=== PATIENT | male | born 1995 | race Caucasian/White ===

== ENCOUNTER 2022-12-26 09:13 | Inpatient (IN) | payer OTHER, SELFPAY ==
[2022-12-26] VITALS (7 sets, daily range): BP systolic 119–150; BP diastolic 67–90; PULSE 87–112; RESP 14–20; TEMP 36.5–37.9; O2SAT 97–100; BMI 20.4
--- NOTE | ~2022-12-26 | CT_ITS ---
EXAMINATION: CT ABDOMEN AND PELVIS WITH CONTRAST CLINICAL INFORMATION: Right lower quadrant abdominal pain concern for PE. COMPARISON: None available. TECHNIQUE: Multidetector volumetric images were obtained from the superior aspect of the liver through the pubic symphysis following administration 85 mL of Omnipaque 350 intravenous contrast. Sagittal and coronal reformatted images were obtained on the technologist's workstation. Oral contrast: No This CT examination was performed using dose optimization techniques as appropriate, variously including the following: *Automated exposure control *Adjustment of mA and/or kV according to patient size (this includes techniques or standardized protocols for targeted exams where dose is matched to indication/reason for exam; i.e. extremities or head) *Use of iterative reconstruction technique DLP: 416 mGy-cm FINDINGS: LUNG BASES: The visualized lung bases are unremarkable. LIVER, GALLBLADDER, AND BILIARY TREE: The liver is normal in size, shape, and attenuation. No focal hepatic lesion or biliary ductal dilatation is present. The gallbladder is unremarkable with no evidence of radiopaque gallstones, gallbladder wall thickening, or obvious pericholecystic inflammatory changes. PANCREAS: Unremarkable. SPLEEN: Unremarkable. ADRENAL GLANDS: Unremarkable. KIDNEYS AND URETERS: The kidneys are normal in size, shape, and attenuation. No hydronephrosis, hydroureter, or calculi seen. No perinephric stranding. BLADDER: Unremarkable. GASTROINTESTINAL TRACT: There is diffuse inflammatory process in the right lower quadrant with mild technique of the cecum. The terminal ileum appears to be normal caliber. The majority of appendix visualized is normal in caliber measuring 7 mm. The base of the appendix is slightly thickened measuring 9 mm. There is a small diverticulum posterior to the cecum which is inflamed and has thick wall. Best visualized on axial image 57/3. This is suspicious for diverticulitis.. The small bowel loops are unremarkable. There is fluid-filled nondilated ascending colon ABDOMINAL WALL: No significant hernia is appreciated. LYMPH NODES: Normal. VASCULAR: Unremarkable. PELVIC VISCERA: There is a small amount of free fluid in the pelvis.. OSSEOUS STRUCTURES: Unremarkable. CT/CT abdomen pelvis w IV con IMPRESSION: Diffuse inflammatory process in the right lower quadrant with mild thickening of the base of the appendix. The majority of the appendix visualized is normal in caliber. There is a small diverticulum posterior to the cecum which is inflamed and has thick wall. The above findings could represent a combination of appendicitis, diverticulitis or combination. There is reactionary cecal wall thickening as well with air-fluid collection in the proximal ascending colon Results were immediately called to referring digester hand in ED [facility] by phone at 1140 AM. Fleischner guidelines were followed.
--- NOTE | 2022-12-26 09:32 | ED.GENADULT ---
HPI - General Adult General Chief complaint: Abdominal Pain Stated complaint: R Side Pain Sent by Urgent Care Time Seen by Provider: 12/26/22 09:32 Source: patient Mode of arrival: ambulatory Limitations: no limitations History of Present Illness HPI narrative: 27 year old male presents with right lower quadrant pain and nausea x2.5 days. Patient describes his pain as constant and nonradiating. It hasn't worsened nor improved over the last two days. He endorses anorexia with his last meal being approximately 36 hours ago. He tolerates fluids without issue. Denies fever, testicular pain and diarrhea but endorses constipation with infrequent and irregular bowel movements. Patient is unable to remember when his last bowel movement was. Patient trialled Tums for his nausea and abdominal discomfort without relief. Onset (ago): day(s) Location: abdomen and right Radiation: non-radiation Severity: moderate Severity scale (1-10): 5 Quality: aching and constant Pain Consistency: constant Relieving factors: none Exacerbating factors: other (palpation) Associated symptoms: nausea/vomiting Treatments prior to arrival: none Related Data Home Medications Medication Instructions Recorded Confirmed No Known Home Meds 12/26/22 12/26/22 Allergies Allergy/AdvReac Type Severity Reaction Status Date / Time No Known Allergies Allergy Verified 12/26/22 09:28 Review of Systems Constitutional: Constitutional: Reports anorexia, Denies excessive sweating and Denies fever(s) Eyes: Eyes: Reports no additional eye complaints, Denies blurry vision, Denies change in vision, Denies diplopia, Denies eye discharge, Denies loss of vision and Denies eye pain ENT: Denies dizziness Cardiovascular: Cardiovascular: Reports no additional cardiovascular complaints, Denies chest pain, Denies lightheadedness, Denies Loss of Consciousness and Denies dyspnea Respiratory: Respiratory: Reports no additional respiratory complaints and Denies dyspnea Gastrointestinal: Gastrointestinal: Reports abdominal pain, Denies change in bowel habits, Reports constipation, Denies diarrhea, Reports nausea and Denies vomiting Genitourinary: Genitourinary: Denies oliguria, Denies difficulty urinating, Denies flank pain and Denies testicular pain Musculoskeletal: Musculoskeletal: Reports no additional musculoskeletal complaints, Denies numbness and Denies tingling Neurologic: Denies dizziness, Denies loss of vision, Denies numbness and Denies tingling Psychiatric: Psychiatric: Reports no additional psychiatric complaints Endocrine: Endocrine: Denies excessive sweating Hematologic/Lymphatic: Hematologic/Lymphatic: Reports no additional hematologic/lymphatic complaints Allergic/Immunologic: Allergic/Immunologic: Reports no additional allergic/immunologic complaints PMFSH Past Medical History Attestation statement: The following information was validated with the patient. (patient's parents validated all information) Source: old records reviewed, obtained from family (patient's parents provided additional history and confirmed the history provided by the patient.) and nursing notes reviewed Medical History No known health problems Social History Social History Smoked in Last 30 Days: Yes Use of substances other than those prescribed or required for medical reasons: Yes Substance Use Type: Marijuana Substance Use Frequency: Daily Advance Directives: No Advance Directives Information Provided: No Physical Exam ED Vital Signs: Vital Signs - 24 hr 12/26/22 09:28 12/26/22 10:24 12/26/22 12:15 Temperature 99.5 F 98.9 F Pulse Rate 112 H 91 94 Respiratory Rate 18 16 14 Blood Pressure 150/90 H 135/88 146/78 H Pulse Oximetry 97 100 98 Oxygen Delivery Method Room Air Room Air Room Air BMI result Body Mass Index 20.4 Const General: cooperative, no acute distress, alert and awake Nutritional Appearance: well nourished Orientation/consciousness: patient oriented x3 Limitations: no limitations [facility] Head: Yes normal to inspection and Yes atraumatic Ears: hearing grossly normal bilaterally and external ears normal General nose exam: Normal external nose present, no nasal discharge noted and no epistaxis Face and sinus: Yes normal facial exam, No abrasion and No laceration Mouth: Normal oral and palatal mucosa present, no drooling and no muffled voice Eyes General: appearance normal, both eyes and all related structures Periorbital: periorbital findings normal Eyelids: Yes eyelids normal Conjunctivae: conjunctivae normal Pupils: Equal, round and reactive pupils present EOM: EOMs intact bilaterally Neck Neck: Yes normal visual inspection, Yes full ROM and Yes no lymphadenopathy Chest Chest palpation & inspection: normal inspection of the chest Resp Effort & Inspection: normal respiratory effort and able to speak in complete sentences GI Other: tenderness is localized to the lower right quadrant/groin without radiation, negative mcburneys, negative rovsings Inspection: Yes normal to inspection, No distended and No visible herniation Palpation (GI): Soft to palpation, not firm, Tenderness to palpation present (GI) in the RLQ, Guarding due to palpation present (GI), no masses and No Rebound tenderness present Neuro General: patient oriented x3 and moves all extremities Cranial nerves: Yes Equal, round and reactive pupils present Cognition (Neuro): normal cognition Motor exam (neuro): 5/5 motor strength present throughout Sensory Exam: Normal double simultaneous stimulation for sensation Coordination: [id number] test normal Extrem General: Yes normal to inspection, Yes full ROM and Yes capillary refill normal Psych Appearance: grossly normal Mental Status: mental status grossly normal Affect: normal affect Attitude: cooperative Thought process: Normal thought process present Thought content: Normal thought content present Insight: Good insight present (Psych) Medications Administered Discontinued Medications Generic Name Dose Route Start Last Admin Trade Name Freq PRN Reason Stop Dose Admin Iohexol 100 ml 12/26/22 10:37 12/26/22 10:38 Iohexol 350 Mg/Ml 100 Ml Infus..Btl IV 12/26/22 10:38 85 ml ONCE ONE Administration Ondansetron HCl 4 mg 12/26/22 09:43 12/26/22 10:21 Ondansetron Hcl 4 Mg/2 Ml Vial IVPUSH 12/26/22 09:44 4 mg ONCE ONE Administration Medical Decision Making Medical Decision Making [facility] Narrative: Patient is a 27 year old assigned male at with no reported medical history presenting to the emergency department today with right lower quadrant abdominal pain. Patient's physical exam was as noted in the physical exam portion of this note. Patient's blood work showed an elevated WBC count of 16.8 and a decreased potassium of 3.1 but the remainder of the patient's labs were unremarkable. Patient's urine showed trace blood and trace leukocyte esterase however, there are squamous cells present and the patient has no urinary complaints, will await culture before starting treatment. Patient's abdominal / pelvis CT showed diffuse inflammatory process in the RLQ with mild thickening at the base of the appendix and a small diverticulum posterior to the cecum with evidence of inflammation. Radiologist states that this could be appendicitis vs. diverticulitis or a combination of both. I spoke with the general surgeon who agreed to admission. I explained my physical exam findings as well as all test results to the patient and the patient's parents. I answered all questions asked by the patient and the patient's parents. Patient and the patient's parents verbalized agreement and understanding with this treatment plan and admission. Differential Diagnosis Differential Diagnoses: The differential diagnosis associated with the presentation includes Appendicitis Diverticulitis Abdominal pain Viral illness Admission/Observation Consideration of admission/observation: Escalation of care including admission/observation considered Patient to be admitted to the surgical service. Consult Healthcare Provider Management of the patient was discussed with: Cable Mechanic (spoke with the surgeon as noted in the MDM rationale portion of this note.) Lab Data [facility] Lab Attestation statement: I reviewed the patient's lab results. My interpretation of these results are in the MDM Rationale portion of this note. 12/26/22 09:50 12/26/22 09:50 Labs: Lab Results 12/26/22 12/26/22 Range/Units 09:50 10:28 WBC 16.8 H (4.8-10.8) X10*3/uL RBC 5.48 (4.60-5.80) X10*6/uL Hgb 16.4 (14.0-18.0) g/dl Hct 48.4 (42.0-52.0) % MCV 88.3 (80.0-98.0) fL MCH 29.9 (27.0-33.0) pg MCHC 33.9 (31.0-36.0) g/dl RDW 12.0 (11.0-16.0) % Plt Count 262 (160-400) X10*3/uL MPV 9.2 L (9.4-12.4) fL Immature Gran % (Auto) 0.4 (0.0-0.4) % Neut % (Auto) 81.6 H (45-73) % Lymph % (Auto) 7.2 L (20-40) % [place] % (Auto) 10.4 (2-11) % Eos % (Auto) 0.2 (0-4) % Baso % (Auto) 0.2 (0-2) % Lymph # (Auto) 1.2 (1.2-4.9) X10*3/uL [place] # (Auto) 1.8 H (0.1-1.2) X10*3/uL Eos # (Auto) 0.0 (0.0-0.4) X10*3/uL Baso # (Auto) 0.0 (0.0-0.2) X10*3/uL Abs Immat Gran (auto) 0.06 H (0.00-0.03) X10*3/uL Absolute Neuts (auto) 13.7 H (2.0-8.3) x10*3/uL Absolute Nucleated RBC 0.000 (0.0-0.012) X10*3/uL Nucleated RBC % (auto) 0.0 (0.0-0.2) /100WBC Smear Tech's Comments VERIFIED PT 14.1 H (11.1-13.3) SEC INR 1.2 H (0.9-1.1) APTT 32.2 (26.0-36.4) SEC Sodium 138 (135-145) mmol/L Potassium 3.1 L (3.3-5.1) mmol/L Chloride 98 (96-108) mmol/L Carbon Dioxide 27 (22-29) mmol/L Anion Gap 16 (12-20) BUN 6 L (9-16) mg/dL Creatinine 0.93 (0.5-1.4) mg/dL Estim Creat Clear Calc 113.0 Estimated GFR > 60 Random Glucose 98 (60-115) mg/dL Lactic Acid 0.8 (0.5-2.0) mmol/L Calcium 10.9 H (8.4-10.2) mg/dL Magnesium 1.8 (1.6-2.6) mg/dL Total Bilirubin 1.5 H (0.0-1.0) mg/dL AST 12 (5-37) U/L ALT 9 (0-40) U/L Alkaline Phosphatase 102 (39-117) U/L Total Protein 8.6 H (6.5-8.0) g/dL Albumin 4.9 (3.5-5.0) g/dL Urine Color Dark Yellow Urine Appearance Clear Urine pH 6.5 (5.0-9.0) Ur Specific [place] >= 1.030 H (1.005-1.025) Urine Protein 30 (1+) H (Neg-Trace) mg/dL Urine Glucose (UA) Negative (Negative) mg/dL Urine Ketones 15 (Negative) mg/dL Urine Blood Small (1+) H (Negative) Urine Nitrite Negative (Negative) Ur Leukocyte Esterase Trace H (Negative) Urine RBC 6-10 H (0-2) /HPF Urine WBC 6-10 H (0-5) /HPF Ur Squamous Epith Cells 0-2 (0-2) /HPF Urine Bacteria None Seen (None Seen) Hyaline Casts 0-2 (0-2) /LPF Influenza Type A (PCR) NEGATIVE (Negative) Influenza Type B (PCR) NEGATIVE (Negative) RSV RNA Qual (PCR) NEGATIVE (Negative) SARS-CoV-2 RNA (RT-PCR) NEGATIVE (Negative) Independent Interpretation I performed an independent interpretation of an: CT Scan Interpretation: My interpretation is in agreement with the radiologist's impression of this imaging study. EXAMINATION: CT ABDOMEN AND PELVIS WITH CONTRAST CLINICAL INFORMATION: Right lower quadrant abdominal pain concern for PE. COMPARISON: None available. TECHNIQUE: Multidetector volumetric images were obtained from the superior aspect of the liver through the pubic symphysis following administration 85 mL of Omnipaque 350 intravenous contrast. Sagittal and coronal reformatted images were obtained on the technologist's workstation. Oral contrast: No This CT examination was performed using dose optimization techniques as appropriate, variously including the following: *Automated exposure control *Adjustment of mA and/or kV according to patient size (this includes techniques or standardized protocols for targeted exams where dose is matched to indication/reason for exam; i.e. extremities or head) *Use of iterative reconstruction technique DLP: 416 mGy-cm FINDINGS: LUNG BASES: The visualized lung bases are unremarkable. LIVER, GALLBLADDER, AND BILIARY TREE: The liver is normal in size, shape, and attenuation. No focal hepatic lesion or biliary ductal dilatation is present. The gallbladder is unremarkable with no evidence of radiopaque gallstones, gallbladder wall thickening, or obvious pericholecystic inflammatory changes. PANCREAS: Unremarkable. SPLEEN: Unremarkable. ADRENAL GLANDS: Unremarkable. KIDNEYS AND URETERS: The kidneys are normal in size, shape, and attenuation. No hydronephrosis, hydroureter, or calculi seen. No perinephric stranding. BLADDER: Unremarkable. GASTROINTESTINAL TRACT: There is diffuse inflammatory process in the right lower quadrant with mild technique of the cecum. The terminal ileum appears to be normal caliber. The majority of appendix visualized is normal in caliber measuring 7 mm. The base of the appendix is slightly thickened measuring 9 mm. There is a small diverticulum posterior to the cecum which is inflamed and has thick wall. Best visualized on axial image 57/3. This is suspicious for diverticulitis.. The small bowel loops are unremarkable. There is fluid-filled nondilated ascending colon ABDOMINAL WALL: No significant hernia is appreciated. LYMPH NODES: Normal. VASCULAR: Unremarkable. PELVIC VISCERA: There is a small amount of free fluid in the pelvis.. OSSEOUS STRUCTURES: Unremarkable. CT/CT abdomen pelvis w IV con IMPRESSION: Diffuse inflammatory process in the right lower quadrant with mild thickening of the base of the appendix. The majority of the appendix visualized is normal in caliber. There is a small diverticulum posterior to the cecum which is inflamed and has thick wall. The above findings could represent a combination of appendicitis, diverticulitis or combination. There is reactionary cecal wall thickening as well with air-fluid collection in the proximal ascending colon Results were immediately called to referring pot room tapper in ED [facility] by phone at 1140 AM. Fleischner guidelines were followed. Dictated By: Evan Mills MD Signed By: Electronically signed by Evan Mills MD 12/26/22 1142 Radiology Impression Discussion of test interpretation with radiology: I have reviewed the radiologist's reading. Independent Historian Clinical information obtained from an independent historian. History obtained from or confirmed by: Parent (patient's parents provided additional history and confirmed the history provided by the patient.) Critical Care Time Critical Care Time Critical Care Time: Yes Total Critical Care Time: 45 Attestation: I spent 45 minutes of Critical Care Time with this patient. This does not include time spent on separately reported billable procedures. Discharge Plan Discharge Clinical Impression: Abdominal pain Patient Disposition: Admitted As Inpatient Prescriptions: No Action No Known Home Meds
[2022-12-26 10:00] LABS: Basophils Percent Auto 0.2 % (0-2); Eosinophils Percent Auto 0.2 % (0-4); Hematocrit 48.4 % (42.0-52.0); Hemoglobin 16.4 g/dl (14.0-18.0); Imm Gran Abs Auto 0.06 X10*3/uL (0.00-0.03); Imm Gran Pct Auto 0.4 % (0.0-0.4); Lymphocytes Absolute Auto 1.2 X10*3/uL (1.2-4.9); Lymphocytes Percent Auto 7.2 % (20-40); MANUAL DIFF FLAG SCAN; Mean Corpuscular HGB Conc 33.9 g/dl (31.0-36.0); Mean Corpuscular Hemoglobin 29.9 pg (27.0-33.0); Mean Corpuscular Volume 88.3 fL (80.0-98.0); Mean Platelet Volume 9.2 fL (9.4-12.4); Monocytes Absolute Auto 1.8 X10*3/uL (0.1-1.2); Monocytes Percent Auto 10.4 % (2-11); Neutrophils Absolute Auto 13.7 x10*3/uL (2.0-8.3); Neutrophils Percent Auto 81.6 % (45-73); Platelet Count 262 X10*3/uL (160-400); Red Blood Count 5.48 X10*6/uL (4.60-5.80); SCAN SMEAR FLAG 1; White Blood Count 16.8 X10*3/uL (4.8-10.8)
[2022-12-26 10:08] LABS: INTERNATIONAL NORM RATIO 1.2 (0.9-1.1); Prothrombin Time 14.1 SEC (11.1-13.3)
[2022-12-26 10:10] LABS: Lactic Acid 0.8 mmol/L (0.5-2.0)
[2022-12-26 10:11] LABS: Partial Thromboplastin Time 32.2 SEC (26.0-36.4)
[2022-12-26 10:13] LABS: Alanine Aminotransferase 9 U/L (0-40); Albumin Level 4.9 g/dL (3.5-5.0); Alkaline Phosphatase 102 U/L (39-117); Anion Gap 16 (12-20); Aspartate Amino Transferase 12 U/L (5-37); Bilirubin Total 1.5 mg/dL (0.0-1.0); Blood Urea Nitrogen 6 mg/dL (9-16); Calcium 10.9 mg/dL (8.4-10.2); Carbon Dioxide 27 mmol/L (22-29); Chloride 98 mmol/L (96-108); Estimated Glomerular Filt Rate > 60; Glucose Random 98 mg/dL (60-115); Magnesium 1.8 mg/dL (1.6-2.6); Potassium 3.1 mmol/L (3.3-5.1); Sodium 138 mmol/L (135-145); Total Protein 8.6 g/dL (6.5-8.0)
[2022-12-26 10:19] LABS: SLIDE REVIEW VERIFIED
[2022-12-26] MEDS: ondansetron HCL 4 MG/2 ML VIAL IVPUSH (10:21)
--- NOTE | 2022-12-26 10:28 | PC.NURSE ---
pt a&ox4, vss, reporting 5/10 RLQ/inguinal abd pain w associated nausea. labs drawn, urine sample obtained, 20G IV placed left AC, medicated per MAR, pt to CT. no new orders at this time.
[2022-12-26 10:38] LABS: Appearance Urine Clear; Color Urine Dark Yellow; Glucose Urine UA Negative (Negative); Leukocyte Esterase Urine Trace (Negative); Nitrite Urine Negative (Negative); PH 6.5 (5.0-9.0); Specific Gravity - Urine >= 1.030 (1.005-1.025); UMIC TRIGGER UACC YES; Urine Blood Small (1+) (Negative); Urine Ketones 15 mg/dL (Negative); Urine Protein 30 (1+) mg/dL (Neg-Trace)
[2022-12-26] MEDS: iohexoL 350 MG/ML 100 ML INFUS..BTL IV (10:38)
[2022-12-26 10:40] LABS: Influenza A PCR NEGATIVE (Negative); Influenza B PCR NEGATIVE (Negative); Resp Syncy Virus RNA Qual PCR NEGATIVE (Negative); SARS COV2 PCR INHOUSE NEGATIVE (Negative)
[2022-12-26 10:41] LABS: Bacteria Urine None Seen (None Seen); Hyaline Casts Urine 0-2 /LPF (0-2); Squamous Epithelial Cell Urine 0-2 /HPF (0-2); UACC Culture Trigger YES
--- NOTE | 2022-12-26 12:58 | PM.HPGS ---
History of Present Illness History of Present Illness Date of Service: 12/26/22 Chief complaint: R Side Pain Sent by Urgent Care Narrative: Noe Frank is a 27 year old male who is seen at the request of the emergency staff due to abdominal pain and obstipation. The patient is accompanied by both his mother and father or at the bedside. He has given permission to discuss his health in front of them. Patient notes that over the past few days he has been experiencing obstipation. He has no history of GI symptoms such as rectal bleeding, watery diarrhea and has not been out of the country. He is on medical marijuana for weight gain an appetite since he is always been in the 5th percentile regarding his body weight. 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 He denies any unusual meal or accidentally swallowing any items such as toothpicks or dental appliances. Patient denies any fevers or chills and there has been no recent trauma. According to both parents the patient, there is no family history of GI malignancy, inflammatory bowel disease, unusual presentations for intra-abdominal pathology with the patient's sister or anyone that they recall. The patient's mother has a history of breast cancer, postmenopausal and there are no patient is on either side of the family who have had colorectal cancer under age of 50. Patient's father's family does report colorectal cancer at an earlier age. Review of Systems Review of Systems: Yes all other systems are reviewed and are negative Constitutional: Constitutional: Reports as per [facility] Past Medical History Medical History No known health problems Functional capacity: independent ambulation Social History Social History Smoked in Last 30 Days: Yes Use of substances other than those prescribed or required for medical reasons: Yes Substance Use Type: Marijuana Substance Use Frequency: Daily Advance Directives: No Advance Directives Information Provided: No Meds Allergies Allergy/AdvReac Type Severity Reaction Status Date / Time No Known Allergies Allergy Verified 12/26/22 09:28 Home Medications Medication Instructions Recorded Confirmed Last Taken Type No Known Home Meds 12/26/22 12/26/22 Unknown History Physical Exam Vital Signs: Vital Signs: Last Vital Signs Temp 98.9 F 12/26/22 10:24 Pulse 94 12/26/22 12:15 Resp 14 12/26/22 12:15 BP 146/78 H 12/26/22 12:15 Pulse Ox 98 12/26/22 12:15 O2 Del Method Room Air 12/26/22 12:15 BMI result Body Mass Index 20.4 The patient is non-toxic & in good spirits NC/AT, PERRLA, EOMI Mood, affect & judgment all appear appropriate Sclera anicteric conjunctiva pink and moist Oropharynx is clear with no aphthous ulcers, Mallampati class 4, mucous membranes moist Neck is supple with no masses, adenopathy or bruits Thyroid is nontender and free of dominant masses Heart is regular, normal S1-S2 no rubs or murmurs Lungs are clear and equal anteriorly with no audible wheezing, rubs or dullness to percussion No CVA tenderness present Abdomen is leanwith no demonstrable hernias. There is no peritoneal irritation to percussion in the right lower quadrant and the patient's abdomen is otherwise soft with some scattered tympany. No HSM, rebound, rigidity, guarding, masses or bruits are present. Rectal exam is deferred Skin has good turgor and is free of rashes Extremities free of cyanosis clubbing edema Results Results Labs: Short CBC 12/26/22 Range/Units 09:50 WBC 16.8 H (4.8-10.8) X10*3/uL Hgb 16.4 (14.0-18.0) g/dl Hct 48.4 (42.0-52.0) % Plt Count 262 (160-400) X10*3/uL BMP 12/26/22 09:50 Sodium 138 Potassium 3.1 L Chloride 98 Carbon Dioxide 27 BUN 6 L Creatinine 0.93 Calcium 10.9 H Liver Function 12/26/22 Range/Units 09:50 Total Bilirubin 1.5 H (0.0-1.0) mg/dL AST 12 (5-37) U/L ALT 9 (0-40) U/L Alkaline Phosphatase 102 (39-117) U/L Albumin 4.9 (3.5-5.0) g/dL Urine 12/26/22 Range/Units 10:28 Urine Color Dark Yellow Urine Appearance Clear Urine pH 6.5 (5.0-9.0) Ur Specific [place] >= 1.030 H (1.005-1.025) Urine Protein 30 (1+) H (Neg-Trace) mg/dL Urine Glucose (UA) Negative (Negative) mg/dL Abdomen CT scan report/results: report reviewed and image reviewed CT scan - pelvis: report reviewed and image reviewed Assessment and Plan (1) Typhlitis: Status: Acute Plan I had a long discussion with the patient and his parents at his request regarding options at this point. Patient appears to have to flatus based on CT findings as his appendix appears normal. Given the degree of inflammation involving the retroperitoneum, admission with bowel rest and Zosyn for 2-3 days to assess recovery is in order. Interval colonoscopy me may be required as an outpatient after 2 months. However, if this fails, an ileocecal ectomy may be required. Questions regarding diet, his weight and IV hydration verses TPN were discussed in their questions seemed to be satisfactorily answered. Patient declined any nicotine replacement given his vaping history of nicotine since he is at the lowest dose and has quit before. While he drinks alcohol most nights, he states he has not consumed alcohol for over a week making withdrawn likely. I should be contacted if he clinically changes. Time Spent With Patient Time: Total time managing care of this patient today ____ minutes. Quality Stroke Does the patient have a stroke diagnosis?: No VTE Prior VTE?: No VTE Risk Level:: Surgical - moderate VTE Device Contraindication: N/A - Device Ordered VTE Drug Contraindication: Treatment Not Indicated Procedures Date of Service Date of Service: 12/26/22
[2022-12-26] MEDS: Piperacillin Sodium/Tazobactam 3.375 GM in 0.9 % Sodium Chloride 50 ML IV ×2 (13:24→18:29)
[2022-12-26] MEDS: Lactated Ringers 1,000 ML 100 ML IVCONT (14:04)
--- NOTE | 2022-12-26 14:15 | PHA.MEDREC ---
Pharmacy Consult ? Medication Reconciliation Pharmacy has completed the medication reconciliation.pharmacy has reviewed the med rec done by nursing
--- NOTE | 2022-12-26 16:40 | PC.NURSE ---
attempted to call report to S3, RN to call back in 10 minutes.
--- NOTE | 2022-12-26 17:18 | PC.NURSE ---
RN-RN report given to S3.
[2022-12-26] MEDS: Docusate Sodium 100 MG CAPSULE 200 MG PO (22:20)
[2022-12-27] MEDS: Lactated Ringers 1,000 ML 100 ML IVCONT ×2 (01:31→18:39)
[2022-12-27] MEDS: Piperacillin Sodium/Tazobactam 3.375 GM in 0.9 % Sodium Chloride 50 ML IV ×4 (01:32→19:41)
[2022-12-27 04:00] VITALS: BP 118/65; PULSE 89; RESP 16; TEMP 36.9; O2SAT 96
[2022-12-27 06:03] LABS: Basophils Absolute Auto 0.1 X10*3/uL (0.0-0.2); Basophils Percent Auto 0.6 % (0-2); Eosinophils Absolute Auto 0.1 X10*3/uL (0.0-0.4); Eosinophils Percent Auto 0.7 % (0-4); Hemoglobin 13.5 g/dl (14.0-18.0); Imm Gran Abs Auto 0.08 X10*3/uL (0.00-0.03); Imm Gran Pct Auto 0.5 % (0.0-0.4); Lymphocytes Absolute Auto 1.2 X10*3/uL (1.2-4.9); Lymphocytes Percent Auto 7.9 % (20-40); MANUAL DIFF FLAG SCAN; Mean Corpuscular HGB Conc 33.8 g/dl (31.0-36.0); Mean Corpuscular Hemoglobin 30.5 pg (27.0-33.0); Mean Corpuscular Volume 90.3 fL (80.0-98.0); Mean Platelet Volume 9.7 fL (9.4-12.4); Monocytes Absolute Auto 1.5 X10*3/uL (0.1-1.2); Monocytes Percent Auto 9.7 % (2-11); Neutrophils Absolute Auto 12.5 x10*3/uL (2.0-8.3); Neutrophils Percent Auto 80.6 % (45-73); Platelet Count 235 X10*3/uL (160-400); Red Blood Count 4.43 X10*6/uL (4.60-5.80); SCAN SMEAR FLAG 1; White Blood Count 15.5 X10*3/uL (4.8-10.8)
[2022-12-27 07:02] LABS: Anion Gap 14 (12-20); Blood Urea Nitrogen 9 mg/dL (9-16); Calcium 9.3 mg/dL (8.4-10.2); Carbon Dioxide 24 mmol/L (22-29); Chloride 102 mmol/L (96-108); Creatinine Clr Calc Pharmacy 129.8; Estimated Glomerular Filt Rate > 60; Glucose Random 78 mg/dL (60-115); Potassium 3.6 mmol/L (3.3-5.1); Sodium 136 mmol/L (135-145)
[2022-12-27 07:09] LABS: Thyroid Stimulating Hormone 1.32 uIU/mL (0.32-4.0)
[2022-12-27 07:21] LABS: Folate 9.3 ng/mL (> or = 4.0); Vitamin B12 516 pg/mL (200-900)
[2022-12-27 07:29] VITALS: BP 123/67; PULSE 91; RESP 18; TEMP 36.9; O2SAT 98
[2022-12-27] MEDS: Docusate Sodium 100 MG CAPSULE 200 MG PO (07:30)
[2022-12-27 07:45] LABS: SLIDE REVIEW VERIFIED
--- NOTE | 2022-12-27 10:34 | P.PNGS_ITS ---
Subjective Subjective Date of Service: 12/27/22 Interval history: The patient reports he is about the same as yesterday. He did note frustration that his IV has been beeping all night and at his interfered with his rest and recuperation. It he otherwise denies new pain, worsening symptoms and he has had liquidy bowel movement. He otherwise denies new symptoms such as chest pain, difficulty breathing, shortness of breath. Patient's mother is at the bedside and given the risk of malnutrition-related concerns, I asked if any type of workup was done regarding the patient as a child. She is unaware of anything other than his history of seizures as an infant that he seems to have outgrown. There is a family history of tall/lean male build, but no history of celiac, inflammatory bowel disease or genetic disorders that would explain his 5th percentile status as a child. As noted, the pt has put on weight as an adult with medical marijuana. Physical Exam 2 Vital Signs: Vital Signs: Last Vital Signs Temp 98.4 F 12/27/22 07:29 Pulse 91 12/27/22 07:29 Resp 18 12/27/22 07:29 BP 123/67 12/27/22 07:29 Pulse Ox 98 12/27/22 07:29 O2 Del Method Room Air 12/27/22 07:29 BMI result Body Mass Index 20.4 He appears tired but is anicteric He is in no acute respiratory distress His abdominal exam is about the same as yesterday with some localizing right lower quadrant discomfort and no diffuse peritonitis or rigidity to his abdomen. Objective Data Active Medications Acetaminophen (Acetaminophen 325 Mg Tablet) 975 mg PO Q6H PRN PRN Reason: Pain, Mild (Pain Scale 1-3) Docusate Sodium (Docusate Sodium 100 Mg Capsule) 200 mg PO BID [facility] Last Admin: 12/27/22 07:30 Dose: 200 mg Documented By: BULL Hydromorphone HCl (Hydromorphone Hcl 0.5 Mg/0.5 Ml Syringe) 0.25 mg IVPUSH Q2H PRN; Protocol PRN Reason: Pain, Moderate(Pain Scale 4-6) Lactated Ringer's (Lr) 1,000 mls @ 100 mls/hr IVCONT .Q10H [facility] Last Admin: 12/27/22 01:31 Dose: 100 mls/hr Documented By: SIVA Piperacillin Sod/Tazobactam (Sod 3.375 gm/ Sodium Chloride) 50 mls @ 100 mls/hr IV Q6H [facility] Last Infusion: 12/27/22 08:41 Dose: Infused Documented By: BULL Ibuprofen (Ibuprofen 400 Mg Tablet) 400 mg PO Q6H PRN PRN Reason: Pain, Mild (Pain Scale 1-3) Ondansetron HCl (Ondansetron Hcl 4 Mg/2 Ml Vial) 4 mg IVPUSH Q6H PRN PRN Reason: Nausea and Vomiting Labs 12/27/22 05:47 12/27/22 05:47 Labs: Laboratory Results - last 24 hr 12/26/22 12/26/22 12/26/22 09:50 10:28 14:21 MCV MCH MCHC RDW Plt Count MPV Immature Gran % (Auto) Neut % (Auto) Lymph % (Auto) [place] % (Auto) Eos % (Auto) Baso % (Auto) Lymph # (Auto) [place] # (Auto) Eos # (Auto) Baso # (Auto) Abs Immat Gran (auto) Absolute Neuts (auto) Absolute Nucleated RBC Nucleated RBC % (auto) Smear Tech's Comments Anion Gap Estim Creat Clear Calc Estimated GFR Random Glucose Calcium Prealbumin 13.0 L Vitamin B12 Folate TSH Urine Color Dark Yellow Urine Appearance Clear Urine pH 6.5 Ur Specific [place] >= 1.030 H Urine Protein 30 (1+) H Urine Glucose (UA) Negative Urine Ketones 15 Urine Blood Small (1+) H Urine Nitrite Negative Ur Leukocyte Esterase Trace H Urine RBC 6-10 H Urine WBC 6-10 H Ur Squamous Epith Cells 0-2 Urine Bacteria None Seen Hyaline Casts 0-2 Influenza Type A (PCR) NEGATIVE Influenza Type B (PCR) NEGATIVE RSV RNA Qual (PCR) NEGATIVE SARS-CoV-2 RNA (RT-PCR) NEGATIVE 12/27/22 05:47 MCV 90.3 MCH 30.5 MCHC 33.8 RDW 12.0 Plt Count 235 MPV 9.7 Immature Gran % (Auto) 0.5 H Neut % (Auto) 80.6 H Lymph % (Auto) 7.9 L [place] % (Auto) 9.7 Eos % (Auto) 0.7 Baso % (Auto) 0.6 Lymph # (Auto) 1.2 [place] # (Auto) 1.5 H Eos # (Auto) 0.1 Baso # (Auto) 0.1 Abs Immat Gran (auto) 0.08 H Absolute Neuts (auto) 12.5 H Absolute Nucleated RBC 0.000 Nucleated RBC % (auto) 0.0 Smear Tech's Comments VERIFIED Anion Gap 14 Estim Creat Clear Calc 129.8 Estimated GFR > 60 Random Glucose 78 Calcium 9.3 D Prealbumin Vitamin B12 516 Folate 9.3 TSH 1.32 Urine Color Urine Appearance Urine pH Ur Specific [place] Urine Protein Urine Glucose (UA) Urine Ketones Urine Blood Urine Nitrite Ur Leukocyte Esterase Urine RBC Urine WBC Ur Squamous Epith Cells Urine Bacteria Hyaline Casts Influenza Type A (PCR) Influenza Type B (PCR) RSV RNA Qual (PCR) SARS-CoV-2 RNA (RT-PCR) Procedures Date of Service Date of Service: 12/27/22 Progress Note: A&P Assessment and plan (1) Typhlitis: Status: Acute (2) Protein calorie malnutrition: Status: Acute Plan Continue antibiotics and bowel rest. Will reassess later today. I again explained the plan for 48-72 hours of antibiotics to see if he is improving since cecal diverticulitis or infection in the setting of no chronic diarrhea is not likely to be Crohn's and this may improve with Abx/non-operative intervention. Or, it may not and an ileocecal ectomy may be in order. Given the patient's pre-albumin of 13 at admission, a week of TPN or oral protein supplementation if tolerated may be in order to mitigate operative risks, but this will be decided as the patient declares himself clinically. I am unsure how much of a workup will need to be done regarding the patient's protein calorie malnutrition. At this time, I do not see a need for gastroenterology to be involved but this may be considered on an outpatient basis since it is unclear whether the patient has a body habitus that contributes or whether there is truly a metabolic derangement to explain his history. Trend labs & exam, wbc trending down; continue Abx & bowel rest Time Spent With Patient Time: Total time managing care of this patient today ____ minutes. Quality Stroke Does the patient have a stroke diagnosis?: No VTE Prior VTE?: No VTE Risk Level:: Surgical - moderate VTE Device Contraindication: N/A - Device Ordered VTE Drug Contraindication: Treatment Not Indicated
--- NOTE | 2022-12-27 13:02 | P.CDIM_ITS ---
PROVIDER RESPONSE TEXT: To clarify, the appropriate diagnosis supported by the clinical indicators: Other (explain): Mild, based on these tests: Prealbumin 13, BUN 7 at presentation QUERY TEXT: PHYSICIAN'S DOCUMENTATION REQUEST Date of Query: 12/27/2022 12:21 PM EDT Patient Name: Noe Frank Admit Date: 12/26/2022 Dear Harry Madison, A review of the medical record indicates additional documentation may be needed. Please review below and update the documentation accordingly. Documentation includes the diagnosis of malnutrition. Additional clinical indicators from the record include: Per MD progress note 12/27/22: protein calorie malnutrition HT: 6 FT WT: 68.2 kg BMI: 20.4 If possible, please provide additional specificity regarding the severity of the malnutrition using t he above information: Mild Moderate Severe Other (explain)Clinically unable to determine (explain)Thank you, Nubia Briscoe RN Use of terms such as suspected, likely, concern for, or probable (associated with a specific diagnosi s that is being evaluated, monitored, or treated as if it exists) are acceptable and can be coded in the inpatient se tting, when documented at the time of discharge. Please use your independent medical judgment in providing your response. THIS QUERY IS PART OF THE PERMANENT MEDICAL RECORD
[2022-12-27 14:00] VITALS: BMI 20.4
--- NOTE | 2022-12-27 14:03 | MHC.CM.PN ---
pt is independent has no servcies has own ride home pt home no servies
[2022-12-27 15:36] VITALS: BP 121/62; PULSE 78; RESP 20; TEMP 36.8; O2SAT 97
[2022-12-27 19:47] VITALS: BP 125/67; PULSE 81; RESP 18; TEMP 36.8; O2SAT 99
[2022-12-28] MEDS: Piperacillin Sodium/Tazobactam 3.375 GM in 0.9 % Sodium Chloride 50 ML IV ×4 (01:24→18:33)
[2022-12-28 03:54] VITALS: BP 108/64; PULSE 58; RESP 16; TEMP 36; O2SAT 98
[2022-12-28 06:01] LABS: MANUAL DIFF FLAG NO
[2022-12-28 06:15] LABS: Basophils Absolute Auto 0.1 X10*3/uL (0.0-0.2); Basophils Percent Auto 0.8 % (0-2); Eosinophils Absolute Auto 0.2 X10*3/uL (0.0-0.4); Eosinophils Percent Auto 2.3 % (0-4); Hematocrit 39.3 % (42.0-52.0); Imm Gran Abs Auto 0.04 X10*3/uL (0.00-0.03); Imm Gran Pct Auto 0.5 % (0.0-0.4); Lymphocytes Absolute Auto 1.1 X10*3/uL (1.2-4.9); Lymphocytes Percent Auto 11.9 % (20-40); Mean Corpuscular HGB Conc 33.1 g/dl (31.0-36.0); Mean Corpuscular Hemoglobin 30.2 pg (27.0-33.0); Mean Corpuscular Volume 91.4 fL (80.0-98.0); Mean Platelet Volume 9.8 fL (9.4-12.4); Monocytes Absolute Auto 0.7 X10*3/uL (0.1-1.2); Monocytes Percent Auto 7.7 % (2-11); Neutrophils Absolute Auto 6.8 x10*3/uL (2.0-8.3); Neutrophils Percent Auto 76.8 % (45-73); Platelet Count 260 X10*3/uL (160-400); White Blood Count 8.9 X10*3/uL (4.8-10.8)
[2022-12-28 06:25] LABS: Anion Gap 16 (12-20); Blood Urea Nitrogen 8 mg/dL (9-16); Calcium 9.3 mg/dL (8.4-10.2); Carbon Dioxide 24 mmol/L (22-29); Chloride 104 mmol/L (96-108); Creatinine Clr Calc Pharmacy 136.5; Estimated Glomerular Filt Rate > 60; Glucose Random 72 mg/dL (60-115); Potassium 4.1 mmol/L (3.3-5.1); Sodium 140 mmol/L (135-145)
[2022-12-28 07:24] VITALS: BP 110/67; PULSE 69; RESP 18; TEMP 36.1; O2SAT 98
--- NOTE | 2022-12-28 07:24 | P.PNGS_ITS ---
Subjective Subjective Date of Service: 12/28/22 Patient reports: no new complaints, feels better, flatus and bowel movement Interval history: The patient is better rested. He reports he is feeling much better, passing gas, hungry and has had another bowel movement which is loose, nonbloody and non diarrhea. Patient verbally gave permission to speak in front of his father. We reviewed labs so for which, other than very low protein, no other vitamin deficiency nor thyroid problem has been identified. The importance of following dietary recommendations to optimize healing was reviewed and the possibility of discharge later today if he is tolerating a liquid diet and a plan to advance his diet at home is reasonable given that he is a reliable patient, educated and has the support of his family. The importance of avoiding alcohol and empty calories was discussed and apparently understood. Patient has no other complaints of headache, neurologic symptoms, chest pain, difficulty breathing or shortness of breath Physical Exam 2 Vital Signs: Vital Signs: Last Vital Signs Temp 96.8 F 12/28/22 03:54 Pulse 58 12/28/22 03:54 Resp 16 12/28/22 03:54 BP 108/64 12/28/22 03:54 Pulse Ox 98 12/28/22 03:54 O2 Del Method Room Air 12/28/22 03:54 BMI result Body Mass Index 20.4 On exam he is nontoxic and in much better spirits he appears well rested He is anicteric He is having no respiratory difficulty Abdomen is less distended and there is no discomfort at all on today's exam there is no rebound, rigidity, peritoneal sign to percussion Overall, he is improved since admission Objective Data Active Medications Acetaminophen (Acetaminophen 325 Mg Tablet) 975 mg PO Q6H PRN PRN Reason: Pain, Mild (Pain Scale 1-3) Hydromorphone HCl (Hydromorphone Hcl 0.5 Mg/0.5 Ml Syringe) 0.25 mg IVPUSH Q2H PRN; Protocol PRN Reason: Pain, Moderate(Pain Scale 4-6) Lactated Ringer's (Lr) 1,000 mls @ 75 mls/hr IVCONT .[id number] [facility] Last Infusion: 12/28/22 07:08 Dose: Infused Documented By: NEELIMA Piperacillin Sod/Tazobactam (Sod 3.375 gm/ Sodium Chloride) 50 mls @ 100 mls/hr IV Q6H [facility] Last Infusion: 12/28/22 06:42 Dose: Infused Documented By: KAYLEY Ibuprofen (Ibuprofen 400 Mg Tablet) 400 mg PO Q6H PRN PRN Reason: Pain, Mild (Pain Scale 1-3) Ondansetron HCl (Ondansetron Hcl 4 Mg/2 Ml Vial) 4 mg IVPUSH Q6H PRN PRN Reason: Nausea and Vomiting Labs 12/28/22 05:50 12/28/22 05:50 Labs: Laboratory Results - last 24 hr 12/27/22 12/28/22 05:47 05:50 MCV 90.3 91.4 MCH 30.5 30.2 MCHC 33.8 33.1 RDW 12.0 12.0 Plt Count 235 260 MPV 9.7 9.8 Immature Gran % (Auto) 0.5 H 0.5 H Neut % (Auto) 80.6 H 76.8 H Lymph % (Auto) 7.9 L 11.9 L [place] % (Auto) 9.7 7.7 Eos % (Auto) 0.7 2.3 Baso % (Auto) 0.6 0.8 Lymph # (Auto) 1.2 1.1 L [place] # (Auto) 1.5 H 0.7 Eos # (Auto) 0.1 0.2 Baso # (Auto) 0.1 0.1 Abs Immat Gran (auto) 0.08 H 0.04 H Absolute Neuts (auto) 12.5 H 6.8 Absolute Nucleated RBC 0.000 0.000 Nucleated RBC % (auto) 0.0 0.0 Smear Tech's Comments VERIFIED Anion Gap 16 Estim Creat Clear Calc 136.5 Estimated GFR > 60 Random Glucose 72 Calcium 9.3 Microbiology Microbiology Results: Microbiology 12/26/22 10:28 Blood Culture - Preliminary Blood - Venous No growth after 24 hours. 12/26/22 09:50 Blood Culture - Preliminary Blood - Venous No growth after 24 hours. 12/26/22 Unknown Urine Culture - Final Urine clean catch - Urine bermeo top No growth. Procedures Date of Service Date of Service: 12/28/22 Progress Note: A&P Assessment and plan (1) Typhlitis: Status: Acute (2) Protein calorie malnutrition: Status: Acute (3) Abdominal pain: Status: Acute Plan I reviewed the unclear diagnosis and possibility of this being cecal diverticulum inflammation or other unexpected infectious disease and the need for interval colonoscopy in 2-3 months to be sure there is not unexpected pathology to explain the presentation. The importance of diet, avoiding alcohol and following the prescribed antibiotics for the full course was reviewed with the patient. He and his dad requested some time to process the information and will discuss home support for possible discharge later today versus tomorrow if there is ongoing improvement. I will reassess the patient later today. Time Spent With Patient Time: Total time managing care of this patient today ____ minutes. Quality Stroke Does the patient have a stroke diagnosis?: No VTE Prior VTE?: No VTE Risk Level:: Surgical - moderate VTE Device Contraindication: N/A - Device Ordered VTE Drug Contraindication: Treatment Not Indicated
[2022-12-28] MEDS: Lactated Ringers 1,000 ML 75 ML IVCONT (10:48)
[2022-12-28 16:00] VITALS: BP 128/79; PULSE 69; RESP 18; TEMP 36.1; O2SAT 99
[2022-12-28 19:13] VITALS: BP 123/67; PULSE 73; RESP 18; TEMP 36.6; O2SAT 97
[2022-12-29] MEDS: Piperacillin Sodium/Tazobactam 3.375 GM in 0.9 % Sodium Chloride 50 ML IV ×2 (01:04→06:09)
[2022-12-29 03:13] VITALS: BP 114/74; PULSE 57; RESP 18; TEMP 36.3; O2SAT 99
[2022-12-29] MEDS: Lactated Ringers 1,000 ML 50 ML IVCONT (06:07)
[2022-12-29 06:28] LABS: MANUAL DIFF FLAG NO
[2022-12-29 06:45] LABS: Basophils Absolute Auto 0.1 X10*3/uL (0.0-0.2); Eosinophils Absolute Auto 0.2 X10*3/uL (0.0-0.4); Eosinophils Percent Auto 4.3 % (0-4); Hematocrit 38.2 % (42.0-52.0); Hemoglobin 12.6 g/dl (14.0-18.0); Imm Gran Abs Auto 0.02 X10*3/uL (0.00-0.03); Imm Gran Pct Auto 0.4 % (0.0-0.4); Lymphocytes Absolute Auto 1.2 X10*3/uL (1.2-4.9); Lymphocytes Percent Auto 25.3 % (20-40); Mean Corpuscular Hemoglobin 29.5 pg (27.0-33.0); Mean Corpuscular Volume 89.5 fL (80.0-98.0); Mean Platelet Volume 9.6 fL (9.4-12.4); Monocytes Absolute Auto 0.5 X10*3/uL (0.1-1.2); Monocytes Percent Auto 9.4 % (2-11); Neutrophils Absolute Auto 2.9 x10*3/uL (2.0-8.3); Neutrophils Percent Auto 59.6 % (45-73); Platelet Count 276 X10*3/uL (160-400); Red Blood Count 4.27 X10*6/uL (4.60-5.80); White Blood Count 4.9 X10*3/uL (4.8-10.8)
[2022-12-29 06:59] LABS: Anion Gap 12 (12-20); Blood Urea Nitrogen 4 mg/dL (9-16); Calcium 9.2 mg/dL (8.4-10.2); Carbon Dioxide 28 mmol/L (22-29); Chloride 107 mmol/L (96-108); Creatinine Clr Calc Pharmacy 134.7; Estimated Glomerular Filt Rate > 60; Glucose Random 88 mg/dL (60-115); Potassium 3.9 mmol/L (3.3-5.1); Sodium 143 mmol/L (135-145)
[2022-12-29 07:35] VITALS: BP 126/57; PULSE 58; RESP 16; TEMP 36.6; O2SAT 98
--- NOTE | 2022-12-29 08:35 | P.PNGS_ITS ---
Subjective Subjective Date of Service: 12/29/22 <Adenike Bo PA-C - Last Filed: 12/29/22 08:40> 12/29/22 <Rico Green MD - Last Filed: 12/29/22 09:44> Interval history: Feels well this morning. Denies abdominal pain. Tolerated full liquids last night and is looking forward to solid food. Continues to pass flatus. Would like to go home today. <Aednike Bo PA-C - Last Filed: 12/29/22 08:40> Physical Exam 2 Vital Signs: Vital Signs: Last Vital Signs Temp 97.9 F 12/29/22 07:35 Pulse 58 12/29/22 07:35 Resp 16 12/29/22 07:35 BP 126/57 L 12/29/22 07:35 Pulse Ox 98 12/29/22 07:35 O2 Del Method Room Air 12/29/22 07:35 BMI result Body Mass Index 20.4 <Adenike Bo PA-C - Last Filed: 12/29/22 08:40> Const: General: comfortable, no acute distress and alert <Adenike Bo PA-C - Last Filed: 12/29/22 08:40> Orientation/consciousness: patient oriented x3 <Adenike Bo PA-C - Last Filed: 12/29/22 08:40> Resp: Effort & Inspection: normal respiratory effort <Adenike Bo PA-C - Last Filed: 12/29/22 08:40> GI: Inspection: No distended <Adenike Bo PA-C - Last Filed: 12/29/22 08:40> Palpation (GI): Soft to palpation, nontender, no guarding and not rigid < Adenike Bo PA-C - Last Filed: 12/29/22 08:40> Percussion: Yes normal to percussion <SHELBY Conti Last Filed: 12/29/22 08:40> Skin: General skin exam: no rashes or lesions noted <SHELBY Conti Last Filed: 12/29/22 08:40> Neuro: General: patient oriented x3 and moves all extremities <Adenike Bo PA-C - Last Filed: 12/29/22 08:40> Objective Data Active Medications Acetaminophen (Acetaminophen 325 Mg Tablet) 975 mg PO Q6H PRN PRN Reason: Pain, Mild (Pain Scale 1-3) Hydromorphone HCl (Hydromorphone Hcl 0.5 Mg/0.5 Ml Syringe) 0.25 mg IVPUSH Q2H PRN; Protocol PRN Reason: Pain, Moderate(Pain Scale 4-6) Lactated Ringer's (Lr) 1,000 mls @ 50 mls/hr IVCONT .Q20H [facility] Last Infusion: 12/29/22 07:44 Dose: 0 mls/hr Documented By: YOLA Piperacillin Sod/Tazobactam (Sod 3.375 gm/ Sodium Chloride) 50 mls @ 100 mls/hr IV Q6H [facility] Last Infusion: 12/29/22 06:44 Dose: Infused Documented By: KAYLEY Ibuprofen (Ibuprofen 400 Mg Tablet) 400 mg PO Q6H PRN PRN Reason: Pain, Mild (Pain Scale 1-3) Ondansetron HCl (Ondansetron Hcl 4 Mg/2 Ml Vial) 4 mg IVPUSH Q6H PRN PRN Reason: Nausea and Vomiting <Adenike Bo PA-C - Last Filed: 12/29/22 08:40> Labs CBC & Chem 7: 12/29/22 05:53 12/29/22 05:53 <Adenike Bo PA-C - Last Filed: 12/29/22 08:40> Labs: Laboratory Results - last 24 hr 12/29/22 05:53 MCV 89.5 MCH 29.5 MCHC 33.0 RDW 12.0 Plt Count 276 MPV 9.6 Immature Gran % (Auto) 0.4 Neut % (Auto) 59.6 Lymph % (Auto) 25.3 [place] % (Auto) 9.4 Eos % (Auto) 4.3 H Baso % (Auto) 1.0 Lymph # (Auto) 1.2 [place] # (Auto) 0.5 Eos # (Auto) 0.2 Baso # (Auto) 0.1 Abs Immat Gran (auto) 0.02 Absolute Neuts (auto) 2.9 Absolute Nucleated RBC 0.000 Nucleated RBC % (auto) 0.0 Anion Gap 12 Estim Creat Clear Calc 134.7 Estimated GFR > 60 Random Glucose 88 Calcium 9.2 <Adenike Bo PA-C - Last Filed: 12/29/22 08:40> Microbiology Microbiology Results: Microbiology 12/26/22 10:28 Blood Culture - Preliminary Blood - Venous No growth after 48 hours. 12/26/22 09:50 Blood Culture - Preliminary Blood - Venous No growth after 48 hours. <Adenike Bo PA-C - Last Filed: 12/29/22 08:40> Procedures Date of Service Date of Service: 12/29/22 <Adenike Bo PA-C - Last Filed: 12/29/22 08:40> 12/29/22 <Rico Green MD - Last Filed: 12/29/22 09:44> Progress Note: A&P Assessment and plan (1) Typhlitis: Status: Acute <Adenike Bo PA-C - Last Filed: 12/29/22 08:40> Assessment and Plan: looks well good oral intake abd soft ok to dc home seen and examined independently <Rico Green MD - Last Filed: 12/29/22 09:44> (2) Protein calorie malnutrition: Status: Acute <Adenike Bo PA-C - Last Filed: 12/29/22 08:40> Assessment and Plan: Will advance to solid diet and discharge to home today on PO course of Augmentin. Patient and mother comfortable with plan. Unclear diagnosis, the need for interval colonoscopy in 2-3 months, importance of diet, avoiding alcohol and following the prescribed antibiotics for the full course was reviewed with the patient by Dr. Madison yesterday. They have no further questions. F/u in the office in 1 week. <Adenike Bo PA-C - Last Filed: 12/29/22 08:40> Time Spent With Patient Time: Total time managing care of this patient today ____ minutes. <Adenike Bo PA-C - Last Filed: 12/29/22 08:40> Quality Stroke Does the patient have a stroke diagnosis?: No <Adenike Bo PA-C - Last Filed: 12/29/22 08:40> VTE Prior VTE?: No <Adenike Bo PA-C - Last Filed: 12/29/22 08:40> VTE Risk Level:: Surgical - moderate <Adenike Bo PA-C - Last Filed: 12/29/22 08:40> VTE Device Contraindication: N/A - Device Ordered <Adenike Bo PA-C - Last Filed: 12/29/22 08:40> VTE Drug Contraindication: Treatment Not Indicated <Adenike Bo PA-C - Last Filed: 12/29/22 08:40>
--- NOTE | 2022-12-29 09:22 | MHC.CM.PN ---
pt dcd home no services
--- NOTE | 2022-12-29 12:17 | PM.DS ---
DS: Providers Provider Date of Service: 12/29/22 Date of admission: 12/26/22 12:56 Date of discharge: 12/29/22 Primary care physician: Calderon Hale MD Attending physician on admission: Harry Madison Consults: 12/26/22 11:41 Consult to General Surgery Stat [place]ing [place] [facility] [place] [facility] Reason for consultation: RLQ abdomainl pain, elevated WBC count, guarding, CT appy vs. diverticuliti Has provider been notified: Yes DS: Diagnosis Discharge Diagnosis (1) Typhlitis: Status: Acute (2) Protein calorie malnutrition: Status: Acute DS: Summary Hospital Course Hospital Course: HPI AT ADMISSION: Noe Frank is a 27 year old male who is seen at the request of the emergency staff due to abdominal pain and obstipation. The patient is accompanied by both his mother and father or at the bedside. He has given permission to discuss his health in front of them. Patient notes that over the past few days he has been experiencing obstipation. He has no history of GI symptoms such as rectal bleeding, watery diarrhea and has not been out of the country. He is on medical marijuana for weight gain an appetite since he is always been in the 5th percentile regarding his body weight. 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 He denies any unusual meal or accidentally swallowing any items such as toothpicks or dental appliances. Patient denies any fevers or chills and there has been no recent trauma. According to both parents the patient, there is no family history of GI malignancy, inflammatory bowel disease, unusual presentations for intra-abdominal pathology with the patient's sister or anyone that they recall. The patient's mother has a history of breast cancer, postmenopausal and there are no patient is on either side of the family who have had colorectal cancer under age of 50. Patient's father's family does report colorectal cancer at an earlier age. HOSPITAL COURSE: Given the degree of inflammation involving the retroperitoneum, the patient was admitted to the surgical service for bowel rest and IV Zosyn, possible ileocecectomy may be required if no improvement. The patient had an uncomplicated hospital course. He improved clinically with supportive measures. His WBC count downtrended and normalized. He began to pass flatus and had nonbloody liquid stools. His diet was slowly advanced as tolerated. He had continued improvement and resolution of his symptoms. On the day of discharge, he had no abdominal pain and was tolerating a solid diet without nausea or vomiting. His abdomen was benign and soft and nontender. He was discharged to home on 12/29/22 on a 6 day course of PO Augmentin. He is to follow up in the office with Dr. Madison in 1 week with plan for outpatient colonoscopy down the line. Status at Discharge Functional status at discharge: independent ambulation Overall status at discharge: patient is back to baseline Time Attestation Discharge coordination time: Less than 30 minutes Quality: Safe Use of Opioids Does Pt have an Active Cancer Diagnosis on the Problem List?: No Quality: Stroke Does the patient have a stroke diagnosis?: No Physical Exam Vital Signs: Vital Signs: Last Vital Signs Temp 97.9 F 12/29/22 07:35 Pulse 58 12/29/22 07:35 Resp 16 12/29/22 07:35 BP 126/57 L 12/29/22 07:35 Pulse Ox 98 12/29/22 07:35 O2 Del Method Room Air 12/29/22 07:35 BMI result Body Mass Index 20.4 Const: General: comfortable, no acute distress and alert Orientation/consciousness: patient oriented x3 GI: Inspection: No distended Palpation (GI): Soft to palpation, nontender and no guarding Skin: General skin exam: no rashes or lesions noted Neuro: General: patient oriented x3 DS: Data Data Completed and Pending Labs on day of discharge: Laboratory Results - last 24 hr 12/29/22 05:53 WBC 4.9 RBC 4.27 L Hgb 12.6 L Hct 38.2 L MCV 89.5 MCH 29.5 MCHC 33.0 RDW 12.0 Plt Count 276 MPV 9.6 Immature Gran % (Auto) 0.4 Neut % (Auto) 59.6 Lymph % (Auto) 25.3 [place] % (Auto) 9.4 Eos % (Auto) 4.3 H Baso % (Auto) 1.0 Lymph # (Auto) 1.2 [place] # (Auto) 0.5 Eos # (Auto) 0.2 Baso # (Auto) 0.1 Abs Immat Gran (auto) 0.02 Absolute Neuts (auto) 2.9 Absolute Nucleated RBC 0.000 Nucleated RBC % (auto) 0.0 Sodium 143 Potassium 3.9 Chloride 107 Carbon Dioxide 28 Anion Gap 12 BUN 4 L Creatinine 0.78 Estim Creat Clear Calc 134.7 Estimated GFR > 60 Random Glucose 88 Calcium 9.2 Preliminary micro results at discharge 12/26/22 10:28 Blood Culture - Preliminary Blood - Venous No growth after 48 hours. 12/26/22 09:50 Blood Culture - Preliminary Blood - Venous No growth after 48 hours. Discharge Plan Discharge Anticipated Discharge Date/Time: 12/29/22 08:39 Patient Disposition: Home, Self-Care Discharge Diagnosis: Cecal infection/inflammation and protein malnutrition Referrals: Calderon Hale MD [Primary Care Provider] - 1 Week Harry Madison MD, VAZQUEZ, JESSICA [Physician] - 1 Week Discharge Medications: New amoxicillin-pot clavulanate 875-125 mg Tablet 875 mg PO Q12H 7 Days Qty: 13 0RF Discharge Orders: Discharge Order (Routine); Ordered 12/29/22 Ordered By: Adenike Bo Diet: Advance to usual diet Activity on Discharge: As tolerated Stand Alone Forms: Patient Portal Discharge page, Work/School Release Activity Restrictions/Additional Instructions: Your treated by Dr. Madison because of cecal inflammation. On CT scan, your appendix did not appear to be the cause so you will need a colonoscopy in 2-3 months to assess this area for polyps, tumors or pouch as call diverticula. At the admission, you were noted to have low protein which is known is protein calorie malnutrition which is likely due to your diet. As discussed with Dr. Madison, you should be obtaining 100 g of protein via 4 meals every day. You can use a protein supplement or protein shake, however, lean protein (meat, poultry, eggs, fish) is preferable if you prefer to eat meals rather than protein supplements. I recommend you to trend the grams of protein either by weight or shake label. You should be taking a men's multivitamin daily. At this time, you should limit carbohydrates like pasta and bread in place of meat/fish/protein. You can eat any vegetables, but should concentrate on protein first. Yogurt with live cultures is beneficial regarding your regular gastrointestinal (gut) mamadou and would be beneficial while on antibiotics. If you have return of your abdominal pain, bloating, vomiting, contact Dr. Madison in report to the nearest emergency department. Likewise, if you develop pain in your chest, trouble breathing or other new symptoms, report to the nearest hospital for evaluation. Foods that are high in concentrated protein include meat, fish, cottage cheese. Is important to read product labels and avoid sugars and empty calories with certain protein products. Protein bars are in acceptable alternative if the protein content is greater than sugar/carbohydrate content. Complete the antibiotic course prescribed by Dr. Madison by taking 1 tablet in the morning and the other in the evening roughly 12 hours apart. Expect to have loose stool but if you develop water or bloody stool, please contact Dr. Madison. Care Plan Goals: Complete course of antibiotics; follow high-protein diet recommendations, take a multivitamin daily Health Concerns: Cecal infection, protein calorie malnutrition Plan of Treatment: Oral antibiotics, medical nutrition therapy Assessment: Cecal infection/inflammation of unknown reason; protein malnutrition Discharge Date/Time: 12/29/22 09:48
[2022-12-31 13:43] LABS: Vitamin B1 <6 nmol/L (8-30)
[2022-12-31 15:47] LABS: Vitamin B6 2.8 ng/mL (2.1-21.7)
[2022-12-31 16:23] LABS: Vitamin D 25-OH, D2 <4 ng/mL; Vitamin D 25-OH, D3 15 ng/mL; Vitamin D 25-OH, Total 15 ng/mL (30-100)
== END 2022-12-29 09:48 | disposition home or self-care (01) | DRG 392 ==
LOC: HO.ED 12:49 → HO.EDOVER 13:11 → HO.S3 16:34
PROVIDERS: Physician Assistant Medical; Admitting Provider Surgery; Emergency Provider Emergency Medicine; PCP Internal Medicine; Visit Provider Surgery
DX: K52.9 Noninfective gastroenteritis and colitis, unspecified (principal); E44.1 Mild protein-calorie malnutrition; K59.00 Constipation, unspecified; Z68.20 Body mass index [BMI] 20.0-20.9, adult; Z20.822 Contact with and (suspected) exposure to COVID-19
CPT/HCPCS: 0241U; 36415; 74177; 80048; 80053; 81001; 82306; 82607; 82746; 83605; 83735; 84134; 84207; 84425; 84443; 85025; 85610; 85730; 87040; 87086; 99284; J2405; J2543; Q9967

== ENCOUNTER → 2022-12-26 09:50 | Outpatient (BNV) | payer OTHER, SELFPAY | PROVIDERS: Emergency Provider Emergency Medicine; PCP Internal Medicine; Visit Provider Surgery | DX: K52.9 Noninfective gastroenteritis and colitis, unspecified (principal); E46 Unspecified protein-calorie malnutrition | CPT/HCPCS: 99222; 99232; 99238 ==

== ENCOUNTER 2023-01-03 11:22 | Outpatient (AMB) | payer OTHER, SELFPAY ==
--- NOTE | 2023-01-03 11:34 | MHC.OFFVIS ---
Intake Vital Signs 01/03/23 11:43 Height 6 ft Weight 150 lb 12.739 oz BMI 20.4 BP 139/72 Blood Pressure Location Rt brachial Position Sitting Pulse 96 Pulse Source Pulse Oximeter Temp 96.3 F L Temp Source Tympanic Pulse Oximetry (%) 96 Oxygen Delivery Method Room Air Intake Visit Reasons: f/u inpatient, inflammed appendix Service Agent Required: No [employer]: [employer] offered & declined Allergies No Known Allergies Allergy (Verified 12/26/22 09:28) Medication List - Last Reconciled 01/03/23 by Harry Madison MD, VAZQUEZ, DAISYS amoxicillin-pot clavulanate 875-125 mg 875 mg PO Q12H 7 days NS HPI HPI Comments History of Present Illness Details The patient returns for follow-up after recent admission due to cecal inflammation, unclear etiology and was also diagnosed with protein malnutrition and vitamin deficiencies. It was unclear if the patient had cecal diverticulitis or an unusual presentation for appendicitis, so options were discussed with the patient and he was placed on bowel rest and IV Zosyn. He clinically improved, his white count normalized and he was discharged on Augmentin and is here for follow-up. He reports that he is supplementing his diet and obtaining about 100 g of protein per day. He is moving his bowels normally and denies any watery diarrhea or bleeding. He is taking a multivitamin is instructed in we reviewed his admission labs which showed protein calorie malnutrition with a pre-albumin of 13 and multivitamin including B1, Vit D deficiency. He notes that his weight is stable and his abdominal pain resolved. He will complete the antibiotic course and the next day. He continues to deny any family history of inflammatory bowel disease, Crohn's disease or GI malignancy. This was confirmed with both of his parents during his hospitalization. [facility] Medical History No known health problems Social History Household Members: Family Housing: House Do you presently have visiting nurse or other home services: No Patient Tobacco Use Status: Current someday Tobacco user Tobacco use type: Smokeless Tobacco Substance Use Type: Marijuana service: No Physical Exam On exam he is nontoxic and in good spirits Sclera anicteric He is lean and in no acute respiratory distress His abdomen is benign with no tenderness, rebound, rigidity, guarding nor hernia Results Reviewed Results Reviewed: Vitamin B1 and vitamin D or low; patient is on a adult multivitamin Pre albumin 13 is noted. Patient reports that he is eating 3-4 meals a day without difficulty. Assessment & Plan Assessment & Plan (1) Typhlitis: Code(s): K52.9 - Noninfective gastroenteritis and colitis, unspecified (2) Protein calorie malnutrition: Code(s): E46 - Unspecified protein-calorie malnutrition Plan The patient will complete the course of antibiotics and follow-up with me by telephone if his abdominal complaints return, he has fevers, diarrhea or rectal bleeding. I have ordered a referral to GI since a colonoscopy will be in order in the next 2 months after adequate healing since it is unclear whether the patient had a cecal posterior wall episode of diverticulitis, and he is concerned regarding his reading on unusual colon cancer presentation. In the setting of no family history, I reassured him this is unusual. His appendix was not actively involved in the retrocecal inflammation on CT and the possibility of his abdominal complaints returning and requiring abdominal surgery was discussed and apparently understood. Patient does note some issues with hyper focus and is encouraged to discuss evaluation for possible ADD with his PCP since he become focus to the point with work and other activities where he neck likes to eat or drink which is demonstrated by his protein calorie malnutrition. Patient is requested I send a copy of this note to his PCP. Patient will contact me if there are questions or if he is clinically worsening; I will order pre-albumin and repeat non-fasting labs at his next visit to assess his nutritional status Orders: Referrals Gastroenterology Referral E46 - Unspecified protein-calorie malnutrition, K52.9 - Noninfective gastroenteritis and colitis, unspecified Coding Level of Care Code Est Pt Level 4 (57970) Diagnoses Typhlitis K52.9 Protein calorie malnutrition E46
[2023-01-03 11:43] VITALS: BP 139/72; PULSE 96; TEMP 35.7; O2SAT 96; BMI 20.4
== END 2023-01-03 12:17 | disposition home or self-care (01) ==
PROVIDERS: PCP Internal Medicine; Visit Provider Surgery
DX: K52.9 Noninfective gastroenteritis and colitis, unspecified (principal); E46 Unspecified protein-calorie malnutrition
CPT/HCPCS: 99214

== ENCOUNTER → 2023-01-03 11:22 | Outpatient (BNVA) | payer OTHER, SELFPAY | PROVIDERS: PCP Internal Medicine; Visit Provider Surgery ==

== ENCOUNTER 2023-01-16 10:55 | Outpatient (REF) | payer OTHER, SELFPAY ==
[2023-01-16 12:05] LABS: MANUAL DIFF FLAG NO
[2023-01-16 12:47] LABS: Basophils Absolute Auto 0.1 X10*3/uL (0.0-0.2); Eosinophils Absolute Auto 0.1 X10*3/uL (0.0-0.4); Eosinophils Percent Auto 2.4 % (0-4); Hematocrit 47.2 % (42.0-52.0); Hemoglobin 15.5 g/dl (14.0-18.0); Imm Gran Abs Auto 0.01 X10*3/uL (0.00-0.03); Imm Gran Pct Auto 0.2 % (0.0-0.4); Lymphocytes Absolute Auto 1.5 X10*3/uL (1.2-4.9); Lymphocytes Percent Auto 29.7 % (20-40); Mean Corpuscular HGB Conc 32.8 g/dl (31.0-36.0); Mean Corpuscular Hemoglobin 30.2 pg (27.0-33.0); Mean Platelet Volume 9.3 fL (9.4-12.4); Monocytes Absolute Auto 0.3 X10*3/uL (0.1-1.2); Monocytes Percent Auto 6.1 % (2-11); Neutrophils Absolute Auto 3.1 x10*3/uL (2.0-8.3); Neutrophils Percent Auto 60.6 % (45-73); Platelet Count 337 X10*3/uL (160-400); Red Blood Count 5.13 X10*6/uL (4.60-5.80); Red Cell Distribution Width 12.6 % (11.0-16.0); White Blood Count 5.1 X10*3/uL (4.8-10.8)
[2023-01-16 13:15] LABS: Alanine Aminotransferase 16 U/L (0-40); Albumin Level 4.8 g/dL (3.5-5.0); Alkaline Phosphatase 93 U/L (39-117); Anion Gap 10 (12-20); Aspartate Amino Transferase 16 U/L (5-37); Bilirubin Total 0.4 mg/dL (0.0-1.0); Blood Urea Nitrogen 15 mg/dL (9-16); Calcium 10.2 mg/dL (8.4-10.2); Carbon Dioxide 32 mmol/L (22-29); Chloride 103 mmol/L (96-108); Estimated Glomerular Filt Rate > 60; Glucose Random 67 mg/dL (60-115); Potassium 4.1 mmol/L (3.3-5.1); Sodium 141 mmol/L (135-145); Total Protein 7.7 g/dL (6.5-8.0)
[2023-01-20 15:19] LABS: Vitamin B1 23 nmol/L (8-30)
[2023-01-20 20:34] LABS: VITAMIN D (1,25 OH) D3 84 pg/mL; Vit D (1,25-Dihydroxy) Total 84 pg/mL (18-72); Vitamin D (1,25 OH) D2 <8 pg/mL
== END 2023-01-16 10:56 | disposition home or self-care (01) ==
LOC: HO.LAB 10:55
PROVIDERS: PCP Internal Medicine; Visit Provider Surgery
DX: E46 Unspecified protein-calorie malnutrition (principal); K52.9 Noninfective gastroenteritis and colitis, unspecified; E51.9 Thiamine deficiency, unspecified; E55.9 Vitamin D deficiency, unspecified; K57.32 Diverticulitis of large intestine without perforation or abscess without bleeding
CPT/HCPCS: 36415; 80053; 82652; 84134; 84425; 85025

== ENCOUNTER 2023-01-16 10:55 | Outpatient (AMB) | payer OTHER, SELFPAY ==
--- NOTE | 2023-01-16 11:20 | MHC.OFFVIS ---
Intake Vital Signs 01/16/23 11:23 Height 6 ft Weight 157 lb 6.561 oz BMI 21.3 BP 141/86 H Blood Pressure Location Rt brachial Position Sitting Pulse 98 Pulse Source Pulse Oximeter Temp 99.7 F Temp Source Tympanic Pulse Oximetry (%) 99 Oxygen Delivery Method Room Air Intake Visit Reasons: f/u inpatient, inflammed appendix Allergies No Known Allergies Allergy (Verified 12/26/22 09:28) HPI HPI Comments History of Present Illness Details The patient returns for follow-up after recent admission due to cecal inflammation, unclear etiology and was also diagnosed with protein malnutrition and vitamin deficiencies. It was unclear if the patient had cecal diverticulitis or an unusual presentation for appendicitis, so options were discussed with the patient and he was placed on bowel rest and IV Zosyn. He clinically improved, his white count normalized and he was discharged on Augmentin and is here for follow-up. Since his last office visit, he reports he is doing well and completed his antibiotics. He is making a concerted effort to improve his diet and continues to take and multivitamin daily. He has no abdominal pain at this point and his bowels are working normally. He reports that he is supplementing his diet and obtaining about 100 g of protein per day. He is moving his bowels normally and denies any watery diarrhea or bleeding. He is taking a multivitamin is instructed in we reviewed his admission labs which showed protein calorie malnutrition with a pre-albumin of 13 and multivitamin including B1, Vit D deficiency. He notes that his weight is stable and his abdominal pain resolved. He will complete the antibiotic course and the next day. He continues to deny any family history of inflammatory bowel disease, Crohn's disease or GI malignancy. This was confirmed with both of his parents during his hospitalization. [facility] Medical History No known health problems Household Members: Family Housing: House Do you presently have visiting nurse or other home services: No Patient Tobacco Use Status: Current someday Tobacco user Tobacco use type: Smokeless Tobacco Substance Use Type: Marijuana service: No Review of Systems Const All systems reviewed & are unremarkable except as noted in HPI and below Reports as per HPI Physical Exam On exam he is nontoxic and in good spirits Sclera anicteric He is lean and in no acute respiratory distress His abdomen is benign with no tenderness, rebound, rigidity, guarding nor hernia Results Reviewed Results Reviewed: Repeat CBC, CMP, pre-albumin, vitamin B1 and vitamin D are pending today. Patient will go after visit for these nonfasting labs Assessment & Plan Assessment & Plan (1) Protein calorie malnutrition: Code(s): E46 - Unspecified protein-calorie malnutrition (2) Vitamin B1 deficiency: Code(s): E51.9 - Thiamine deficiency, unspecified (3) Vitamin D deficiency: Code(s): E55.9 - Vitamin D deficiency, unspecified (4) Cecal diverticulitis: Code(s): K57.32 - Diverticulitis of large intestine without perforation or abscess without bleeding Plan Instructions regarding diet and activity reviewed and apparently understood. Patient will go for nonfasting labs today and follow-up with me in the beginning of January. He will contact me if he has return of right lower quadrant abdominal pain. Patient has a follow-up/colonoscopy scheduled with GI for the end of February,. The possibility of cecal diverticulitis or atypical appendicitis was discussed in addition to the possibility of malignancy. Patient's questions seemed to be satisfactorily answered. Orders: Orders Complete Blood Count Auto Diff Today E46 - Unspecified protein-calorie malnutrition, K52.9 - Noninfective gastroenteritis and colitis, unspecified Comprehensive Met. Panel Today E46 - Unspecified protein-calorie malnutrition, K52.9 - Noninfective gastroenteritis and colitis, unspecified Prealbumin Today E46 - Unspecified protein-calorie malnutrition, K52.9 - Noninfective gastroenteritis and colitis, unspecified Vitamin B1 Today E51.9 - Thiamine deficiency, unspecified, E55.9 - Vitamin D deficiency, unspecified Vitamin D 1,25 dihydroxy Today E51.9 - Thiamine deficiency, unspecified, E55.9 - Vitamin D deficiency, unspecified Coding Level of Care Code Est Pt Level 4 (52788) Diagnoses Protein calorie malnutrition E46 Vitamin B1 deficiency E51.9 Vitamin D deficiency E55.9 Cecal diverticulitis K57.32
[2023-01-16 11:23] VITALS: BP 141/86; PULSE 98; TEMP 37.6; O2SAT 99; BMI 21.3
== END 2023-01-16 12:03 | disposition home or self-care (01) ==
PROVIDERS: PCP Internal Medicine; Visit Provider Surgery
DX: E46 Unspecified protein-calorie malnutrition (principal); E51.9 Thiamine deficiency, unspecified; E55.9 Vitamin D deficiency, unspecified; K57.32 Diverticulitis of large intestine without perforation or abscess without bleeding
CPT/HCPCS: 99214

== ENCOUNTER 2023-01-25 14:23 | Outpatient (AMB) | payer OTHER, SELFPAY ==
--- NOTE | 2023-01-25 14:27 | MHC.OFFVIS ---
Intake Vital Signs 01/25/23 14:32 Height 6 ft Weight 156 lb 15.506 oz BMI 21.3 BP 134/94 H Blood Pressure Location Lt brachial Position Sitting Pulse 88 Intake Visit Reasons: Gastroenteritis and Colitis Intake Note: Patient presents to in office visit today as a new patient for gastroenteritis and colitis. CC: Patient reports a month ago he was admitted to the hospital for inflammation on his appendix for over a week. He states he was advised by Dr. Madison to eat well as he was malnourished and he has been following his instructions. Denies other GI symptoms today. Business Leader Required: No Accompanied by: Self / Same As Patient Allergies No Known Allergies Allergy (Verified 01/25/23 15:10) HPI Gastroenteritis and Colitis HPI Details 27-year-old male here for an evaluation of ?enteritis and colitis. ? He is referred by Leonora SAUER of [facility] in [place]. Apparently he was seen in our ER and then admitted for CIS CT scan finding of inflammation in the right lower quadrant after which she was treated with antibiotics and discharged after improvement.. He has been seeing our General surgery Department and apparently ileal cecal ectomy was discussed. PMX Anxiety Migraines Seasonal allergies Excessive sweating * SURGICAL HISTORY PT denies Happy teeth removed * ALLERGIES:NKDA * [place] LABS: Laboratory Tests 12/27/22 01/16/23 05:47 11:59 WBC 5.1 Hgb 15.5 D Hct 47.2 D Plt Count 337 Estimated GFR > 60 Total Bilirubin 0.4 AST 16 ALT 16 Alkaline Phosphata se [address] ABDOMEN AND PELVIS 12/26/22 FINDINGS: LUNG BASES: The visualized lung bases are unremarkable. LIVER, GALLBLADDER, AND BILIARY TREE: The liver is normal in size, shape, and attenuation. No focal hepatic lesion or biliary ductal dilatation is present. The gallbladder is unremarkable with no evidence of radiopaque gallstones, gallbladder wall thickening, or obvious pericholecystic inflammatory changes. PANCREAS: Unremarkable. SPLEEN: Unremarkable. ADRENAL GLANDS: Unremarkable. KIDNEYS AND URETERS: The kidneys are normal in size, shape, and attenuation. No hydronephrosis, hydroureter, or calculi seen. No perinephric stranding. BLADDER: Unremarkable. GASTROINTESTINAL TRACT: There is diffuse inflammatory process in the right lower quadrant with mild technique of the cecum. The terminal ileum appears to be normal caliber. The majority of appendix visualized is normal in caliber measuring 7 mm. The base of the appendix is slightly thickened measuring 9 mm. There is a small diverticulum posterior to the cecum which is inflamed and has thick wall. Best visualized on axial image 57/3. This is suspicious for diverticulitis.. The small bowel loops are unremarkable. There is fluid-filled nondilated ascending colon ABDOMINAL WALL: No significant hernia is appreciated. LYMPH NODES: Normal. VASCULAR: Unremarkable. PELVIC VISCERA: There is a small amount of free fluid in the pelvis.. OSSEOUS STRUCTURES: Unremarkable. CT/CT abdomen pelvis w IV con IMPRESSION: Diffuse inflammatory process in the right lower quadrant with mild thickening of the base of the appendix. The majority of the appendix visualized is normal in caliber. There is a small diverticulum posterior to the cecum which is inflamed and has thick wall. The above findings could represent a combination of appendicitis, diverticulitis or combination. There is reactionary cecal wall thickening as well with air-fluid collection in the proximal ascending colon Results were immediately called to referring pants cutter in ED [facility] by phone at 1140 AM. Fleischner guidelines were followed. CORRESPONDENCE Dr. Madison's no from General surgery and admission 01/16/2023 The patient returns for follow-up after recent admission due to cecal inflammation, unclear etiology and was also diagnosed with protein malnutrition and vitamin deficiencies. It was unclear if the patient had cecal diverticulitis or an unusual presentation for appendicitis, so options were discussed with the patient and he was placed on bowel rest and IV Zosyn. He clinically improved, his white count normalized and he was discharged on Augmentin and is here for follow-up. Instructions regarding diet and activity reviewed and apparently understood. Patient will go for nonfasting labs today and follow-up with me in the beginning of January. He will contact me if he has return of right lower quadrant abdominal pain. Patient has a follow-up/colonoscopy scheduled with GI for the end of February,. The possibility of cecal diverticulitis or atypical appendicitis was discussed in addition to the possibility of malignancy. Patient's questions seemed to be satisfactorily answered.. TODAY'S VISIT NOTE THE PATIENT SHOWS NO HISTORY OF OR RECENT NEUTROPENIA - IN FACT NEUTROPHILIC DURING INFECTION. This is in regards to the presumptive diagnosis given by surgery of typhlitis. This would ordinarily occur her in someone who is a transplant patient or his immunocompromised or has chronic neutropenia so this does not seem likely in the differential diagnosis. He is happy to report today that he is feeling entirely well. He has had no return of his symptoms. We discussed his hospitalization and the possible differential diagnoses and he is agreeable to having the colonoscopy so we can help exclude any concerning problems that would need more aggressive management. . 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 He seems quite happy with this and seems to thrive on the stress. His bowels have returned to his prior baseline, bid soft. No upper GI problems. The only prior problems he had was when he had mononucleosis when he was younger he was extremely bed ridden for 3 weeks. It may be that he does not do well with viral syndromes and it is possible that the ileitis was related to severe norovirus infection. I educate him about the possibilities of inflammatory bowel disease and why it can sometimes be difficult to diagnose in the early stages because of the exacerbating remitting nature of the disease. With this he is educated about alarm signs and symptoms that he should report immediately either to myself or another provider. He did not have much experience with anesthesia or sedation except for dental procedures. He denies any cardiac or respiratory problems. No ID problems. His paternal grandfather of CRC and his father has yearly scopes. No other colon or diarrheal problems. I asked him to get me more information about his father's condition as it may be multiple polyposis syndrome and it may help us to better protect his health going forward. He says he will speak to him about this. I will see him after the procedure or sooner if he develops concerning signs or symptoms. [facility] Medical History No known health problems Surgical History No pertinent past surgical history Family History Paternal Grandfather Colon cancer Mother Breast cancer Maternal Grandmother Breast cancer Social History Household Members: Family Housing: House Do you presently have visiting nurse or other home services: No Alcohol intake: current Alcohol intake frequency: holidays/special occasions only Alcohol type: beer Patient Tobacco Use Status: Current someday Tobacco user Tobacco use type: Smokeless Tobacco Substance Use Type: Marijuana service: No Review of Systems Const Denies fatigue, Denies fever(s), Denies night sweats, Denies poor appetite and Denies weight loss ENT Reports Normal hearing present, Denies dental pain, Denies dysphagia, Denies hearing loss, Denies mouth pain, Denies odynophagia, Denies throat swelling, Denies tongue swelling and Reports other (Dentition adequate) Card Reports no additional complaints Resp Reports no additional complaints GI Denies abdominal pain, Denies melena, Denies bloating, Denies hematochezia, Denies constipation, Denies GI cramping, Denies dysphagia, Denies excessive flatus, Denies early satiety, Denies heartburn, Denies diarrhea, Denies nausea, Denies odynophagia, Denies vomiting and Denies hematemesis Skin/Breast Denies pruritus, Denies lesions, Denies rash and Denies jaundice Neuro Reports Normal hearing present and Denies Abnormal speech present Endo Denies fatigue Aller/Immun Denies throat swelling and Denies tongue swelling Physical Exam Vital Signs: Last Vital Signs Pulse 88 01/25/23 14:32 BP 134/94 H 01/25/23 14:32 BMI result Body Mass Index 21.3 Const General: cooperative, no acute distress, well developed and well groomed Nutritional Appearance: average body habitus and well nourished Orientation/consciousness: oriented to person, oriented to place and oriented to time Limitations: No language barrier HEENT Head: Yes normocephalic and Yes atraumatic Eyes General: appearance normal, both eyes and all related structures Pupils: Equal, round and reactive pupils present Neck Neck: Yes normal visual inspection and Yes no lymphadenopathy Thyroid: Thyroid normal Resp Effort & Inspection: normal respiratory effort and able to speak in complete sentences Auscultation: clear to auscultation bilaterally Cardio Rate: regular rate Rhythm: regular rhythm Heart sounds: Normal, physiologic split S2 sound present Peripheral pulses: radial pulses present and posterior tibial pulses present GI Inspection: No distended and No Abdominal panniculus present Palpation (GI): Soft to palpation, nontender, no guarding, not rigid and No hepatosplenomegaly present Percussion: Yes normal to percussion Auscultation: normal bowel sounds Rectal Exam - Male: Yes deferred Skin General skin exam: no rashes or lesions noted, turgor normal, skin not dry, no jaundice, No spider nevi and no striae Rashes: no rashes Nails: normal Neuro General: oriented to person, oriented to place and oriented to time Cranial nerves: Yes Equal, round and reactive pupils present and Yes Normal hearing present Speech: No Abnormal speech present Extrem General: Yes normal to inspection, No clubbing, No cyanosis and No edema Psych Appearance: grossly normal and well kempt Mental Status: mental status grossly normal Speech and movement: Normal speech and movement present Affect: normal affect Attitude: cooperative Thought process: Normal thought process present and not confabulating Thought content: Normal thought content present Insight: Limited insight present (Psych) Judgement: Limited judgement present (Psych) Assessment & Plan Assessment & Plan (1) Ileal erosions: Comment: Really more retroperitoneal inflammation and ileal irritation shown on CT scan, but there is no good diagnosis in the computer to reflect this. aeb Code(s): K63.3 - Ulcer of intestine Plan: NOTE THE PATIENT SHOWS NO HISTORY OF OR RECENT NEUTROPENIA - IN FACT NEUTROPHILIC DURING INFECTION. This is in regards to the presumptive diagnosis given by surgery of typhlitis. This would ordinarily occur her in someone who is a transplant patient or his immunocompromised or has chronic neutropenia so this does not seem likely in the differential diagnosis. He is happy to report today that he is feeling entirely well. He has had no return of his symptoms. We discussed his hospitalization and the possible differential diagnoses and he is agreeable to having the colonoscopy so we can help exclude any concerning problems that would need more aggressive management. . 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 He seems quite happy with this and seems to thrive on the stress. His bowels have returned to his prior baseline, bid soft. No upper GI problems. The only prior problems he had was when he had mononucleosis when he was younger he was extremely bed ridden for 3 weeks. It may be that he does not do well with viral syndromes and it is possible that the ileitis was related to severe norovirus infection. I educate him about the possibilities of inflammatory bowel disease and why it can sometimes be difficult to diagnose in the early stages because of the exacerbating remitting nature of the disease. With this he is educated about alarm signs and symptoms that he should report immediately either to myself or another provider. He did not have much experience with anesthesia or sedation except for dental procedures. He denies any cardiac or respiratory problems. No ID problems. His paternal grandfather of CRC and his father has yearly scopes. No other colon or diarrheal problems. I asked him to get me more information about his father's condition as it may be multiple polyposis syndrome and it may help us to better protect his health going forward. He says he will speak to him about this. I will see him after the procedure or sooner if he develops concerning signs or symptoms. Plan NOTE THE PATIENT SHOWS NO HISTORY OF OR RECENT NEUTROPENIA - IN FACT NEUTROPHILIC DURING INFECTION. This is in regards to the presumptive diagnosis given by surgery of typhlitis. This would ordinarily occur her in someone who is a transplant patient or his immunocompromised or has chronic neutropenia so this does not seem likely in the differential diagnosis. He is happy to report today that he is feeling entirely well. He has had no return of his symptoms. We discussed his hospitalization and the possible differential diagnoses and he is agreeable to having the colonoscopy so we can help exclude any concerning problems that would need more aggressive management. . 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 He seems quite happy with this and seems to thrive on the stress. His bowels have returned to his prior baseline, bid soft. No upper GI problems. The only prior problems he had was when he had mononucleosis when he was younger he was extremely bed ridden for 3 weeks. It may be that he does not do well with viral syndromes and it is possible that the ileitis was related to severe norovirus infection. I educate him about the possibilities of inflammatory bowel disease and why it can sometimes be difficult to diagnose in the early stages because of the exacerbating remitting nature of the disease. With this he is educated about alarm signs and symptoms that he should report immediately either to myself or another provider. He did not have much experience with anesthesia or sedation except for dental procedures. He denies any cardiac or respiratory problems. No ID problems. His paternal grandfather of CRC and his father has yearly scopes. No other colon or diarrheal problems. I asked him to get me more information about his father's condition as it may be multiple polyposis syndrome and it may help us to better protect his health going forward. He says he will speak to him about this. I will see him after the procedure or sooner if he develops concerning signs or symptoms. Orders: Orders Colonoscopy - GI Use Only Today K63.3 - Ulcer of intestine Coding Level of Care Code New Pt Level 3 (78507) Diagnoses Ileal erosions K63.3
[2023-01-25 14:32] VITALS: BP 134/94; PULSE 88; BMI 21.3
== END 2023-01-25 15:52 | disposition home or self-care (01) ==
PROVIDERS: PCP Internal Medicine; Visit Provider Nurse Practitioner
DX: K63.3 Ulcer of intestine (principal)
CPT/HCPCS: 99203

== ENCOUNTER → 2023-01-25 14:23 | Outpatient (BNVA) | payer OTHER, SELFPAY | PROVIDERS: PCP Internal Medicine; Visit Provider Nurse Practitioner ==

== ENCOUNTER 2023-02-06 15:55 | Outpatient (AMB) | payer OTHER, SELFPAY ==
--- NOTE | 2023-02-06 15:58 | A.OFFVIS_ITS ---
Intake Vital Signs 02/06/23 16:02 Height 6 ft Weight 156 lb 15.506 oz BMI 21.3 BP 137/80 Blood Pressure Location Rt brachial Position Sitting Pulse 81 Pulse Source Pulse Oximeter Temp 97.0 F Temp Source Tympanic Pulse Oximetry (%) 99 Oxygen Delivery Method Room Air Intake Visit Reasons: f/u inpatient, inflammed appendix Allergies No Known Allergies Allergy (Verified 01/25/23 15:10) HPI HPI Comments History of Present Illness Details The patient returns for follow-up after recent admission due to cecal inflammation, unclear etiology and was also diagnosed with protein malnutrition and vitamin deficiencies. It was unclear if the patient had cecal diverticulitis or an unusual presentation for appendicitis, so options were discussed with the patient and he was placed on bowel rest and IV Zosyn. He clinically improved, his white count normalized and he was discharged on Augmentin and is here for follow-up. He has made a focused effort regarding his diet and multivitamin and continues to deny any new complaints or abdominal leni PFSH Medical History No known health problems Surgical History No pertinent past surgical history Family History Paternal Grandfather Colon cancer Mother Breast cancer Maternal Grandmother Breast cancer Social History Household Members: Family Housing: House Do you presently have visiting nurse or other home services: No Alcohol intake: current Alcohol intake frequency: holidays/special occasions only Alcohol type: beer Patient Tobacco Use Status: Current someday Tobacco user Tobacco use type: Smokeless Tobacco Substance Use Type: Marijuana service: No Review of Systems Const All systems reviewed & are unremarkable except as noted in HPI and below Physical Exam Vital Signs: Last Vital Signs Temp 97.0 F 02/06/23 16:02 Pulse 81 02/06/23 16:02 BP 137/80 02/06/23 16:02 Pulse Ox 99 02/06/23 16:02 Oxygen Delivery Method Room Air 02/06/23 16:02 BMI result Body Mass Index 21.3 On exam he is nontoxic and in good spirits Sclera anicteric He is lean and in no acute respiratory distress His abdomen is benign with no tenderness, rebound, rigidity, guarding nor hernia Results Reviewed Results Reviewed: Repeat labs show a pre-albumin of 37 Hemoglobin is normal at 15.5 with normochromic/normocytic indices, platelet count 3 3 7 K, white blood cell count normal at 5.1 Electrolytes and LFTs within normal parameters BUN 15, creatinine 0.87 Multivitamins are all within normal parameters Assessment & Plan Assessment & Plan (1) Ileal erosions: Comment: Really more retroperitoneal inflammation and ileal irritation shown on CT scan, but there is no good diagnosis in the computer to reflect this. aeb Code(s): K63.3 - Ulcer of intestine (2) Cecal diverticulitis: Code(s): K57.32 - Diverticulitis of large intestine without perforation or abscess without bleeding Plan I reviewed the patient's medical nutrition therapy results is demonstrated by his labs and it is reassuring that when he focuses on good protein and multivitamin intake, his body has normalized. This is strongly suggestive that there is not a significant chronic illness that his parents expressed concern o taina. Patient has a follow-up appointment with Kandace Da Silva regarding his colonoscopy that is tentatively planned for around March,. Explained to the patient that I will be absent for medical reasons for several months and if he has return of his abdominal pain, new symptoms op to please contact Dr. Rico Green, since this is a colorectal issue. Alternatively, the patient presente d to the emergency department. The patient also requested Dr. Green because several family members had been patient is in received excellent care. Will see the patient in April 2023; he will follow up with GI as previously arranged regarding his colonoscopy and contact the general surgery office or report to the emergency room for return of abdominal pain. Coding Level of Care Code Est Pt Level 4 (95323) Diagnoses Ileal erosions K63.3 Cecal diverticulitis K57.32
[2023-02-06 16:02] VITALS: BP 137/80; PULSE 81; TEMP 36.1; O2SAT 99; BMI 21.3
== END 2023-02-06 16:28 | disposition home or self-care (01) ==
PROVIDERS: PCP Internal Medicine; Visit Provider Surgery
DX: K63.3 Ulcer of intestine (principal); K57.32 Diverticulitis of large intestine without perforation or abscess without bleeding
CPT/HCPCS: 99214

== ENCOUNTER → 2023-02-06 15:55 | Outpatient (BNVA) | payer OTHER, SELFPAY | PROVIDERS: PCP Internal Medicine; Visit Provider Surgery | DX: E46 Unspecified protein-calorie malnutrition (principal); K52.9 Noninfective gastroenteritis and colitis, unspecified; E51.9 Thiamine deficiency, unspecified; E55.9 Vitamin D deficiency, unspecified ==